=== PATIENT | male | born 1955 | race Caucasian/White ===

== ENCOUNTER 2023-11-12 22:38 | Inpatient (IN) | payer MEDICARE, OTHER ==
[2023-11-12 23:45] LABS: Actual Bicarbonate (HCO3v) 23.4 mEq/L (22-28); Analyzer IN Cardio CS ER; Base Excess -2.9 mEq/L (-2 - +2); Calcium, Ionized (venous) 1.12 mmol/L (1.16-1.32); Chloride (VBG) 99 mmol/L (98-106); Critical Notified By: CP.PH; Hematocrit-VBG 47 % (42.0-52.0); Hemoglobin (Hb) 16.1 g/dL (12.6-17.4); Potassium (VBG) 5.43 mmol/L (3.70-5.30); Puncture Site Other Site; RapidComm Collect By LAB.YY; Sodium 139 mmol/L (133-146); pH (venous) 7.323 (7.32-7.43)
[2023-11-13 00:05] LABS: ALT (SGPT) 15 U/L (8-55); AST (SGOT) 56 U/L (5-34); Albumin 3.5 g/dL (3.4-4.8); Alkaline Phosphatase 68 U/L (40-110); Anion Gap 20 mmol/L (10-20); BUN (Urea Nitrogen) 49 mg/dL (8.4-25.7); Calc. Creatinine Clearance 0 mL/min (70-130); Calcium 9.2 mg/dL (7.8-10.44); Carbon Dioxide 22 mmol/L (23-31); Chloride 100 mmol/L (98-107); Estimated GFR 29; Globulin 3.5 g/dL (2.4-3.5); Glucose 344 mg/dL (80-115); Lipase 46 U/L (8-78); Potassium 5.4 mmol/L (3.5-5.1); Sodium 137 mmol/L (136-145)
[2023-11-13] MEDS ORDERED: Ondansetron PF 4 MG/2 ML Vial ONE (00:16)
[2023-11-13 00:18] LABS: Band 19 % (5-11); Lymphocytes 3 % (21-51); Reactive Lymphocytes 2 % (0-10)
[2023-11-13 00:19] LABS: Neutrophil 63 % (42-75)
[2023-11-13 00:20] LABS: Monocytes 13 % (0-10)
[2023-11-13 00:22] LABS: Platelet Adequacy Comment Appears Increased; RBC Morph Comment Within Normal Limits
[2023-11-13 00:34] LABS: Hematocrit 43.6 % (38.8-50.0); Hemoglobin 15.1 g/dL (13.5-17.5); Mean Corpuscular HGB CONC 34.6 g/dL (32.0-36.0); Mean Corpuscular Hemoglobin 32.8 pg (27.0-33.0); Mean Corpuscular Volume 94.6 fL (81.2-95.1); Mean Platelet Volume 11.5 fL (7.4-10.4); Platelet Count 44 10x3/uL (150-450); RBC Distribution Width 14.2 % (11.5-14.5); Red Blood Cell (RBC) Count 4.61 10x6/uL (4.32-5.72)
[2023-11-13] MEDS ORDERED: Piperacillin/Tazobactam 3.375 GM VIAL ONE ×2 (02:39→06:28)
[2023-11-13] MEDS ORDERED: Insulin Regular 300 UNITS/3 ML VIAL IVP SCH ×2 (05:00→05:45)
[2023-11-13] MEDS: Sodium Chloride 0.9% 1,000 ML IV SCH (05:24)
[2023-11-13] MEDS: Lantus 1000 UNITS/10 ML VIAL SC SCH ×2 (05:27→09:27)
[2023-11-13 05:30] LABS: #Basophils 0.04 10x3/uL (0.0-0.2); #Eosinphils 0.03 10x3/uL (0.0-0.5); #Monocytes 1.49 10x3/uL (0.0-1.1); #Neutrophils 6.24 10x3/uL (1.5-8.4); %Basophils 0.5 % (0.0-2.0); %Eosinophils 0.4 % (0.0-6.0); %Lymphocytes 7.1 % (18.0-47.0); %Monocytes 17.6 % (0.0-10.0); %Neutrophils 73.7 % (40.0-75.0); Anion Gap 13 mmol/L (10-20); BUN (Urea Nitrogen) 54 mg/dL (8.4-25.7); Calc. Creatinine Clearance 0 mL/min (70-130); Carbon Dioxide 25 mmol/L (23-31); Chloride 105 mmol/L (98-107); Estimated GFR 29; Glucose 243 mg/dL (80-115); Hematocrit 35.5 % (38.8-50.0); Hemoglobin 12.4 g/dL (13.5-17.5); Magnesium 1.6 mg/dL (1.6-2.6); Mean Corpuscular HGB CONC 34.9 g/dL (32.0-36.0); Mean Corpuscular Hemoglobin 32.6 pg (27.0-33.0); Mean Corpuscular Volume 93.4 fL (81.2-95.1); Mean Platelet Volume 12.2 fL (7.4-10.4); Phosphorus 2.8 mg/dL (2.3-4.7); Platelet Count 32 10x3/uL (150-450); Potassium 4.9 mmol/L (3.5-5.1); RBC Distribution Width 14.3 % (11.5-14.5); Sodium 138 mmol/L (136-145); White Blood Cell (WBC) Count 8.5 10x3/uL (3.5-10.5)
[2023-11-13 06:31] LABS: INR-International Normal Ratio 1.1; PTT 27.3 sec (22.0-33.0); Prothrombin Time 11.4 sec (9.5-12.1)
[2023-11-13] MEDS: Piperacillin/Tazobactam 3.375 GM in Sodium Chloride 0.9% 100 ML IVPB SCH (06:41)
[2023-11-13] MEDS ORDERED: Enoxaparin 30 MG (0.3 mL) SYRINGE SC SCH (09:00)
[2023-11-13 09:26] LABS: Anion Gap 14 mmol/L (10-20); BUN (Urea Nitrogen) 55 mg/dL (8.4-25.7); Calc. Creatinine Clearance 0 mL/min (70-130); Calcium 7.9 mg/dL (7.8-10.44); Carbon Dioxide 21 mmol/L (23-31); Chloride 108 mmol/L (98-107); Estimated GFR 29; Glucose 201 mg/dL (80-115); Potassium 4.5 mmol/L (3.5-5.1); Sodium 138 mmol/L (136-145)
[2023-11-13] MEDS: Sodium Chloride 0.45% 1,000 ML IV SCH (10:47)
[2023-11-13 10:52] VITALS: BMI 24.4
[2023-11-13 12:59] LABS: Bilirubin 1+ (Negative); Blood, Urine 250 (Negative); Clarity Cloudy (Clear); Glucose, Urine (Dipstick) 250 mg/dL (Negative); Ketone, Urine 5 mg/dL (Negative); Leukocyte 25 (Negative); Nitrite Negative (Negative); Protein, Urine (Dipstick) 500 mg/dl (Neg-Trace); Urobilinogen Normal mg/dL (Less than 2)
[2023-11-13 13:13] LABS: Bacteria/HPF Rare-Few HPF (None Seen); Squamous Epithelial 0-3 HPF (0-3); WBC/HPF 0-3 HPF (0-3)
[2023-11-13] MEDS: Morphine 2 MG/ML VIAL SLOW IVP PRN (14:38)
[2023-11-13] MEDS: Ondansetron PF 4 MG/2 ML Vial IVP PRN (14:38)
[2023-11-13] MEDS: Pantoprazole 40 MG VIAL IVP SCH (17:21)
[2023-11-14 07:04] LABS: D-Dimer Test 5.48 mcg/mL (0.19-0.50); INR-International Normal Ratio 1.1; PTT 27.7 sec (22.0-33.0); Prothrombin Time 11.4 sec (9.5-12.1)
[2023-11-14 07:16] LABS: ALT (SGPT) 72 U/L (8-55); AST (SGOT) 191 U/L (5-34); Albumin 2.6 g/dL (3.4-4.8); Alkaline Phosphatase 144 U/L (40-110); Anion Gap 16 mmol/L (10-20); BUN (Urea Nitrogen) 68 mg/dL (8.4-25.7); Bilirubin, Total 2.2 mg/dL (0.2-1.2); Calc. Creatinine Clearance 22 mL/min (70-130); Carbon Dioxide 20 mmol/L (23-31); Chloride 106 mmol/L (98-107); Estimated GFR 16; Globulin 2.7 g/dL (2.4-3.5); Glucose 224 mg/dL (80-115); Magnesium 1.6 mg/dL (1.6-2.6); Potassium 4.5 mmol/L (3.5-5.1); Protein, Total 5.3 g/dL (5.8-8.1); Sodium 137 mmol/L (136-145)
[2023-11-14] MEDS: Pantoprazole 40 MG VIAL IVP SCH (08:14)
[2023-11-14 08:28] LABS: Hematocrit 34.8 % (38.8-50.0); Hemoglobin 12.3 g/dL (13.5-17.5); Mean Corpuscular HGB CONC 35.3 g/dL (32.0-36.0); Mean Corpuscular Hemoglobin 32.5 pg (27.0-33.0); Mean Corpuscular Volume 92.1 fL (81.2-95.1); Platelet Count 33 10x3/uL (150-450); RBC Distribution Width 15.1 % (11.5-14.5); Red Blood Cell (RBC) Count 3.78 10x6/uL (4.32-5.72)
[2023-11-14 08:29] LABS: Band 14 % (5-11); Eosinophils 1 % (0-10); Lymphocytes 5 % (21-51); MDiff Complete? YES; Metamyelocyte 1 % (0-0); Monocytes 14 % (0-10); Neutrophil 63 % (42-75); Platelet Adequacy Comment Appears Decreased; RBC Morph Comment Within Normal Limits; Reactive Lymphocytes 2 % (0-10)
[2023-11-14] MEDS ORDERED: Famotidine 20 MG TAB PO SCH (09:00)
[2023-11-14] MEDS: Piperacillin/Tazobactam 3.375 GM in Sodium Chloride 0.9% 100 ML IVPB SCH (11:09)
[2023-11-14] MEDS: Ondansetron PF 4 MG/2 ML Vial IVP PRN (12:00)
[2023-11-14] MEDS: Morphine 4 MG/ML VIAL SLOW IVP PRN (12:01)
[2023-11-14] MEDS: Sodium Chloride 0.9% 1,000 ML IV SCH (12:01)
[2023-11-14 13:30] LABS: Hemoglobin A1c 6.4 % (4.0-6.0)
[2023-11-14] MEDS ORDERED: Piperacillin/Tazobactam 2.25 GM in Sodium Chloride 0.9% 100 ML IVPB SCH (14:00)
[2023-11-14 14:55] VITALS: TEMP 98.9
[2023-11-14 15:59] VITALS: BP 132/68
[2023-11-14 17:17] LABS: Campy jejuni + coli by PCR Negative (Negative); STEC Shiga Toxin 1+2 POSITIVE (Negative); Salmonella spp. by PCR Negative (Negative); Shigella spp + EIEC by PCR Negative (Negative)
[2023-11-14] MEDS ORDERED: Piperacillin/Tazobactam 3.375 GM in Sodium Chloride 0.9% 100 ML IVPB SCH (21:30)
[2023-11-17 00:37] LABS: Adenovirus F 40-41 Not Detected (Not Detected); Astrovirus Not Detected (Not Detected); C. difficile toxin A+B Not Detected (Not Detected); Campylobacter by PCR Not Detected (Not Detected); Cryptosporidium Not Detected (Not Detected); Cyclospora cayetanensis Not Detected (Not Detected); Entamoeba histolytica Not Detected (Not Detected); Enteroaggregative E. coli Not Detected (Not Detected); Enterotoxigenic E. coli Not Detected (Not Detected); Giardia lamblia Not Detected (Not Detected); Norovirus GI-GII Not Detected (Not Detected); Plesiomonas shigelloides Not Detected (Not Detected); Rotavirus A Not Detected (Not Detected); Salmonella Not Detected (Not Detected); Sapovirus Not Detected (Not Detected); Shiga-toxin-producing E coli DETECTED (Not Detected); Shigella/Enteroinvasive E coli Not Detected (Not Detected); Vibrio Not Detected (Not Detected); Vibrio cholerae Not Detected (Not Detected); Yersinia enterocolitica Not Detected (Not Detected)
== END 2023-11-14 16:03 | disposition short-term general hospital (02) | DRG 371 ==
LOC: CSHERS 22:38 → CSHERHOLD 11-13 04:28 → OBSVTOIN 11-13 04:34 → CSHTELE 11-13 09:50
PROVIDERS: ADMIT Family Medicine; ATTEND Family Medicine
DX: A04.4 Other intestinal Escherichia coli infections (principal); E11.10 Type 2 diabetes mellitus with ketoacidosis without coma; N17.9 Acute kidney failure, unspecified; E78.5 Hyperlipidemia, unspecified; D69.6 Thrombocytopenia, unspecified; E86.0 Dehydration; E87.5 Hyperkalemia; Z79.899 Other long term (current) drug therapy
CPT/HCPCS: 36415; 36416; 74176; 80048; 80053; 81001; 82010; 82274; 82805; 83036; 83605; 83630; 83690; 83735; 84100; 85025; 85049; 85300; 85362; 85384; 85610; 85730; 87040; 87324; 87449; 87505; 87507; 93005; 96361; 96365; 96375; C9113; J1815; J2270; J2272; J2405; J2543; J3490; J7050